=== PATIENT | female | born 1955 | race Caucasian/White ===

== ENCOUNTER 2018-12-14 06:43 | Day surgery (SDC) | payer MEDICARE ==
[2018-12-13 15:36] VITALS: BP 129/61
[2018-12-13 15:39] LABS: BASOPHILS % (AUTO) 0.7 % (0.0-5.0); EOSINOPHILS % (AUTO) 4.8 % (0.0-8.0); HEMATOCRIT 35.9 % (36-48); LYMPHOCYTES % (AUTO) 16.7 % (21.0-51.0); MEAN CORPUSCULAR HGB CONC 33.5 g/dL (32.0-36.0); MEAN CORPUSCULAR VOLUME 83.6 fL (79-99); MONOCYTES % (AUTO) 5.9 % (3.0-13.0); NEUTROPHILS % (AUTO) 71.9 % (40.0-77.0); PLATELET COUNT (AUTO) 305 K/uL (130-400); RED BLOOD CELL COUNT(AUTO) 4.29 MIL/uL (4.00-5.50); RED CELL DISTRIBUTION WIDTH 16.1 % (11.0-15.5); WHITE BLOOD COUNT (AUTO) 7.6 K/uL (4.8-10.8)
[2018-12-13 15:46] LABS: CREATININE 1.1 mg/dL (0.5-1.5); POTASSIUM 3.7 mmol/L (3.5-5.1)
[2018-12-14] VITALS (21 sets, daily range): BP systolic 103–129; BP diastolic 49–75
[~2018-12-14] VITALS: Ht 151.1 cm; Wt 133.5 kg
[~2018-12-14 06:43] MED LIST: ASPI-555 PO; CARV6.2579 PO; CEFAZOLIN 3GM /D5W 100ML 100 ML IV SCH; GLIM1TAB2 PO; IBUP-2077 PO; METF-446 PO; MULT-1077 PO; PROB500T26 PO; SIMV40TA5 PO; VALS1TAB75 PO
[2018-12-14] MEDS ORDERED: SODIUM CHLORIDE 0.9% 1000ML 1,000 ML IV ONE (07:21)
[2018-12-14] MEDS ORDERED: CEFAZOLIN SODIUM 1 GM VIAL ONE ×2 (07:21→07:41)
[2018-12-14] MEDS ORDERED: BUPIVACAINE/PF 0.25% 30ML VIAL IJ ONE (07:41)
[2018-12-14] MEDS ORDERED: FENTANYL CITRATE PF 50 MCG/1 ML 2ML VIAL ONE (08:09)
[2018-12-14] MEDS ORDERED: MIDAZOLAM HCL 1 MG/ML 2ML VIAL ONE (08:09)
[2018-12-14] MEDS ORDERED: PROPOFOL 10 MG/ML 20ML VIAL IV ONE (08:09)
[2018-12-14] MEDS ORDERED: LIDOCAINE PF 2% 5ML ABBOJECT ONE (08:09)
[2018-12-14] MEDS ORDERED: ONDANSETRON HCL 4 MG/2 ML VIAL ONE (09:34)
[2018-12-14] MEDS ORDERED: PHENYLEPHRINE HCL 10 MG/ML 1ML VIAL IV ONE (09:38)
[2018-12-14] MEDS ORDERED: SODIUM CHLORIDE 0.9% 10 ML VIAL ONE (09:38)
[2018-12-14] MEDS ORDERED: TYL3 PO (11:09)
[2018-12-14] MEDS ORDERED: CEPH500B PO (11:09)
--- NOTE | 2018-12-14 11:25 | NUR ---
ASSESSMENT RECEIVED PT FROM PACU STAFF DEBBIE ALLISON. RIGHT ARM IN SLING. DRSG DRY AND INTACT. DENIES ANY PAIN. GRANDDAUGHTER AT BEDSIDE.
--- NOTE | 2018-12-14 12:00 | NUR ---
DISCHARGE DISCHARGE INSTRUCTIONS GIVEN TO PT AND PTS FAMILY ALONG WITH PRESCRIPTION. NO OTHER QUESTIONS AT THIS TIME. INSTRUCTED ON IMPORTANCE OF FOLLOWING DR. GUZMAN DISCHARGE INSTRUCTIONS. NO OTHER QUESTIONS AT THIS TIME.
== END 2018-12-14 12:00 | disposition home or self-care (01) ==
LOC: DAH 06:43
PROVIDERS: ATTEND Orthopaedic Surgery
DX: G56.03 Carpal tunnel syndrome, bilateral upper limbs (principal); E11.9 Type 2 diabetes mellitus without complications; E78.00 Pure hypercholesterolemia, unspecified; I10 Essential (primary) hypertension; M10.9 Gout, unspecified; M19.90 Unspecified osteoarthritis, unspecified site; Z79.82 Long term (current) use of aspirin; Z79.84 Long term (current) use of oral hypoglycemic drugs; Z79.899 Other long term (current) drug therapy; Z96.653 Presence of artificial knee joint, bilateral; Z87.59 Personal history of other complications of pregnancy, childbirth and the puerperium
CPT/HCPCS: 36415; 64721; 80048; 82948 ×2; 85025; A4215; A4649; A4930; A6223; J0690 ×2; J2001; J2250; J2370; J2405; J2704; J3010; J3490; J7030

== ENCOUNTER 2019-05-20 06:27 | Day surgery (SDC) | payer MEDICARE ==
[2019-05-17 12:02] VITALS: BP 144/65
[2019-05-17 12:14] LABS: BASOPHILS % (AUTO) 0.3 % (0.0-5.0); EOSINOPHILS % (AUTO) 5.1 % (0.0-8.0); HEMATOCRIT 36.2 % (36-48); LYMPHOCYTES % (AUTO) 17.1 % (21.0-51.0); MEAN CORPUSCULAR HEMOGLOBIN 27.3 pg (27.0-33.0); MEAN CORPUSCULAR HGB CONC 31.8 g/dL (32.0-36.0); MONOCYTES % (AUTO) 6.2 % (3.0-13.0); PLATELET COUNT (AUTO) 264 K/uL (130-400); RED BLOOD CELL COUNT(AUTO) 4.21 MIL/uL (4.00-5.50); RED CELL DISTRIBUTION WIDTH 15.4 % (11.0-15.5); WHITE BLOOD COUNT (AUTO) 8.7 K/uL (4.8-10.8)
[2019-05-17 12:25] LABS: CREATININE 1.1 mg/dL (0.5-1.5); POTASSIUM 4.2 mmol/L (3.5-5.1)
[2019-05-20] VITALS (16 sets, daily range): BP systolic 118–137; BP diastolic 40–77
[~2019-05-20] VITALS: Ht 151.1 cm; Wt 136.1 kg
[~2019-05-20 06:27] MED LIST changes: +BIOT1TAB16 PO; -CEFAZOLIN 3GM /D5W 100ML 100 ML IV SCH; +CEFAZOLIN SODIUM 1 GM VIAL IVP SCH; -GLIM1TAB2 PO; +GLIM1TAB3 PO; -IBUP-2077 PO; -MULT-1077 PO; +ROSU10TA28 PO; -SIMV40TA5 PO
[2019-05-20] MEDS ORDERED: SODIUM CHLORIDE 0.9% 1000ML 1,000 ML IV ONE (06:54)
[2019-05-20] MEDS ORDERED: SUCCINYLCHOLINE 200MG/10ML SYR ONE (07:41)
[2019-05-20] MEDS ORDERED: LIDOCAINE PF 2% 5ML ABBOJECT ONE (07:41)
[2019-05-20] MEDS ORDERED: PROPOFOL 10 MG/ML 20ML VIAL IV ONE (07:42)
[2019-05-20] MEDS ORDERED: ONDANSETRON HCL 4 MG/2 ML VIAL ONE (07:42)
[2019-05-20] MEDS ORDERED: FENTANYL CITRATE PF 50 MCG/1 ML 2ML VIAL ONE ×2 (07:42→09:16)
[2019-05-20] MEDS ORDERED: MIDAZOLAM HCL 1 MG/ML 2ML VIAL ONE (07:57)
[2019-05-20] MEDS ORDERED: CEFAZOLIN SODIUM 1 GM VIAL ONE (08:09)
[2019-05-20] MEDS ORDERED: EPHEDRINE SULFATE 50 MG/ML AMPULE ONE (08:42)
[2019-05-20] MEDS ORDERED: DEXAMETHASONE SOD PHOSPHATE 10MG/ML 1ML VIAL ONE (08:49)
[2019-05-20] MEDS ORDERED: KETOROLAC TROMETHAMINE 30MG/ML ONE (08:49)
[2019-05-20] MEDS ORDERED: BUPIVACAINE/PF 0.5% 30ML VIAL ONE (08:57)
[2019-05-20] MEDS ORDERED: CEPH500B PO (09:51)
[2019-05-20] MEDS ORDERED: ACET1TAB12 PO (09:51)
--- NOTE | 2019-05-20 11:00 | NUR ---
PATIENT ARRIVED PATIENT BROUGHT TO DAY PATIENT FROM PACU BY DEBBIE LAGUNA. PATIENT [id number], RESPIRATIONS UNLABORED, VITAL SIGNS STABLE. DENIES ANY PAIN AT THIS TIME. DRESSING (DORY WRAP) TO LEFT HAND/WRIST IS DRY AND INTACT. SIDE RAILS UPX2, BED IN LOWEST POSITION, CALL FRAUSTO IN REACH.
--- NOTE | 2019-05-20 11:15 | NUR ---
DISCHARGE INSTRUCTIONS DISCHARGE INSTRUCTIONS PROVIDED TO PATIENT'S GRANDAUGHTER AND PATIENT. HANDOUTS PROVIDED AND FOLLOW UP APPOINTMENT PROVIDED. INSTRUCTED PATIENT ON INCISION CARE AND PROVIDED HANDOUT WITH DR GUZMAN INSTRUCTIONS. ALL QUESTIONS ANSWERED. PATIENT AND GRAND DAUGHTER VERBALIZED UNDERSTANDING OF INSTRUCTIONS.
--- NOTE | 2019-05-20 11:30 | NUR ---
DISCHARGED PATIENT DISCHARGED FROM FACILITY VIA WHEELCHAIR BY JOCELYN KAUFMAN. PATIENT ASSISTED INTO PRIVATE VEHICLE DRIVEN BY FAMILY MEMBER.
== END 2019-05-20 11:30 | disposition home or self-care (01) ==
LOC: DAH 06:27
PROVIDERS: ATTEND Orthopaedic Surgery
DX: G56.02 Carpal tunnel syndrome, left upper limb (principal); I10 Essential (primary) hypertension; E11.9 Type 2 diabetes mellitus without complications; E66.9 Obesity, unspecified; M19.90 Unspecified osteoarthritis, unspecified site; E66.01 Morbid (severe) obesity due to excess calories; Z68.43 Body mass index [BMI] 50.0-59.9, adult; Z79.82 Long term (current) use of aspirin; Z79.899 Other long term (current) drug therapy; Z90.49 Acquired absence of other specified parts of digestive tract; Z98.890 Other specified postprocedural states; Z79.84 Long term (current) use of oral hypoglycemic drugs; Z88.8 Allergy status to other drugs, medicaments and biological substances; Z88.1 Allergy status to other antibiotic agents; Z82.49 Family history of ischemic heart disease and other diseases of the circulatory system; Z83.3 Family history of diabetes mellitus; Z87.01 Personal history of pneumonia (recurrent)
CPT/HCPCS: 36415; 64721; 80048; 82948 ×2; 85025; A4215; A4221; A4222; A4223; A4649 ×2; A4663; A4930 ×2; A6223; J0330; J0690 ×2; J1100; J1885; J2001; J2250; J2405; J2704; J3010 ×2; J3490 ×2; J7030